=== PATIENT | female | born 1925 | race Caucasian/White ===

== ENCOUNTER 2016-08-05 18:52 | Emergency (ER) | payer MEDICARE, OTHER ==
--- NOTE | ~2016-08-05 | CT55 ---
[facility] A Service of [facility] RADIOLOGY TEXT RESULTS PATIENT: ROBERT MELÉNDEZ LOCATION: [facility] : [birth year] UNIT #: [id number] AGE: [address]: Duke Dunlap MD SEX: F ORDER DR: [id number] [facility] [address] [place], [place] [address] [id number] E MR#: [id number] #: [id number] NAME: ROBERT MELÉNDEZ. : 1925 SEX: F STUDY DATE/TIME: 08/05/2016 20:29 UNIT: [facility] ROOM: STUDY DESCRIPTION: CT Chest W Con Attending Physician: Duke Dunlap M.D. Ordering Physician: Duke Dunlap M.D. Primary Care Physician: Jyotsna Da Silva M.D. MEDICAL IMAGING REPORT This report is preliminary unless electronic signature is present EXAM CT chest with IV contrast HISTORY Right lung nodule on chest x-ray today. Lethargy. Unresponsive today. TECHNIQUE This CT examination was performed with one or more of the following radiation dose reduction techniques: automatic exposure control, adjustment of mA and/or kV according to patient size, and iterative reconstruction. FINDINGS CT chest with IV contrast demonstrates 2 patchy nodules in the posterior right upper lobe, extending to the posterior pleural surface. The more superior of these nodules measures 1.2 cm x 1.2 cm and the more inferior measures 1.2 cm x 1.8 cm. This corresponds with the right upper lung nodule on chest x-ray earlier today. Patchy adjacent infiltrates throughout both of these right upper lobe nodules and considerations include focal infectious or inflammatory etiologies, although malignancy including primary lung carcinoma must be considered. Either short-term followup CT or PET/CT should be considered depending on the patient's risk factors, and clinical symptoms. Mild bilateral emphysema. Mild subsegmental atelectasis in the peripheral inferior right lower lobe and in the inferior lingula. No adenopathy. Normal caliber thoracic aorta. IMPRESSION 1. There are 2 rounded nodules in the posterior right upper lobe, the more superior measuring 1.2 cm x 1.2 cm and the more inferior measuring 1.2 cm x 1.8 cm. The larger of these nodules likely corresponds to the right upper lung nodule on chest x-ray earlier today. There are mild patchy adjacent infiltrates about each of these right upper lobe nodules. Considerations include malignancy, both lung carcinoma or less STS. [facility] A Service of [facility] RADIOLOGY TEXT RESULTS PATIENT: ROBERT MELÉNDEZ [id number] [birth year] UNIT #: [id number] AGE: [address]: Duke Dunlap MD SEX: F ORDER DR: likely metastatic disease, versus infectious or inflammatory etiologies. Consider either short-term followup chest CT or PET/CT depending on the patient's history, symptoms and risk factors. 2. No additional infiltrates. No adenopathy. No effusions. Dictated by... Lenny Bauer M.D. THIS IS AN ELECTRONICALLY VERIFIED REPORT Lenny Bauer M.D. at 08/07/2016 12:28 PM KIN/rock TD: 08/07/2016 06:23 JOB #: [id number] MEDICAL IMAGING REPORT COPY
--- NOTE | ~2016-08-05 | CT71 ---
[facility] A Service of [facility] RADIOLOGY TEXT RESULTS PATIENT: ROBERT MELÉNDEZ LOCATION: [facility] : [birth year] UNIT #: [id number] AGE: [address]: Duke Dunlap MD SEX: F ORDER DR: [id number] [facility] [address] [place], [place] [address] [id number] E MR#: [id number] Acc #: [id number] NAME: ROBERT MELÉNDEZ. : 1925 SEX: F STUDY DATE/TIME: 08/05/2016 19:06 UNIT: [facility] ROOM: STUDY DESCRIPTION: CT Head Wo Contrast Attending Physician: Duke Dunlap M.D. Ordering Physician: Duke Dunlap M.D. Primary Care Physician: Jyotsna Da Silva M.D. MEDICAL IMAGING REPORT This report is preliminary unless electronic signature is present EXAM Head CT without, 08/05/2016 HISTORY Family found the patient less responsive this morning, lethargic, hypotension. TECHNIQUE This CT exam was performed with one or more of the following radiation dose reduction techniques: automatic exposure control, adjustment of mA and/or kV according to patient size, and iterative reconstruction. COMMENT Routine noncontrast head CT is reviewed. Comparison study is from 01/17/2016. No displaced calvarial fracture. The mastoid air cells are clear. There are vascular calcifications, quite prominent at the base of the brain. Only minor paranasal sinus mucosal thickening and no air-fluid level in the visualized paranasal sinuses. There is atrophy and severe white matter low attenuation as well as lacunar disease in the bilateral basal ganglia and thalami, technically age indeterminate but I do not see intracranial mass effect. Area of low attenuation in the right thalamus is more apparent than prior and could be more recent. If there is clinical concern for acute CVA and the patient is a candidate she is best assessed further with an MRI. There is no extraaxial fluid collection or acute intracranial hemorrhage. The patient has had cataract surgery bilaterally. IMPRESSION 1. No acute intracranial hemorrhage or extraaxial fluid collection or intracranial mass effect. [facility] A Service of [facility] RADIOLOGY TEXT RESULTS PATIENT: ROBERT MELÉNDEZ LOCATION: [facility] : [birth year] UNIT #: [id number] AGE: [address]: Duke Dunlap MD SEX: F ORDER DR: 2. 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 This was present on the study of 01/17/2016 but it may be worse. 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 If there is concern for an acute CVA and the patient is a candidate this is best pursued with an MRI. 3. There is extensive vascular calcification at the base of the brain. Dictated by... Gabriela Pete M.D. THIS IS AN ELECTRONICALLY VERIFIED REPORT Gabriela Pete M.D. at 08/07/2016 7:46 AM MOHIT/kennedy TD: 08/07/2016 00:16 JOB #: [id number] MEDICAL IMAGING REPORT COPY
--- NOTE | ~2016-08-05 | CR72 ---
[facility] A Service of [facility] RADIOLOGY TEXT RESULTS PATIENT: ROBERT MELÉNDEZ LOCATION: [facility] : [birth year] UNIT #: [id number] AGE: [address]: Duke Dunlap MD SEX: F ORDER DR: [id number] [facility] [address] [place], [place] [address] [id number] E MR#: [id number] Acc #: [id number] NAME: ROBERT MELÉNDEZ. : 1925 SEX: F STUDY DATE/TIME: 08/05/2016 18:31 UNIT: [facility] ROOM: STUDY DESCRIPTION: CR Chest Single View Portable Attending Physician: Duke Dunlap M.D. Ordering Physician: Duke Dunlap M.D. Primary Care Physician: Jyotsna Da Silva M.D. MEDICAL IMAGING REPORT This report is preliminary unless electronic signature is present EXAM Portable chest, 08/05/2016 HISTORY Shortness of air and weakness today. FINDINGS There is a lobulated nodule over the right upper lung, new compared to chest x-rays 10/06/2015 and 01/17/2016, measuring 1.69 cm x 2/4 cm. Considerations include neoplasm versus focal infectious or inflammatory process. Suggest further evaluation with chest CT. Cardiac size and pulmonary vascularity are within normal limits. Mild linear atelectasis or scarring in the lateral right base. Small calcified granulomas in the upper lungs bilaterally. Degenerative changes in both shoulders. IMPRESSION 1. Lobulated nodular density over the right upper lung measuring 1.6 cm x 2.4 cm is new compared to 01/17/2016. Considerations include neoplasm versus focal infectious or inflammatory process. Followup chest CT when clinically appropriate is recommended. 2. No focal infiltrates in the remainder of the chest. No effusions. Dictated by... Lenny Bauer M.D. THIS IS AN ELECTRONICALLY VERIFIED REPORT Lenny Bauer M.D. at 08/07/2016 12:26 PM DFMyles/kennedy TD: 08/07/2016 01:03 JOB #: [id number] [facility] A Service of [facility] RADIOLOGY TEXT RESULTS PATIENT: ROBERT MELÉNDEZ [id number] [birth year] UNIT #: [id number] AGE: [address]: Duke Dunlap MD SEX: F ORDER DR: MEDICAL IMAGING REPORT COPY
--- NOTE | ~2016-08-05 | EKG ---
PATIENT: ROBERT MELÉNDEZ UNIT #: [id number] Ventricular Rate: 63 BPM Atrial Rate: 63 BPM P-R Interval: 138 ms QRS Duration: 74 ms Q-T Interval: 478 ms QTC Calculation(Bezet): 489 ms P [place]: -15 degrees Calculated R [place]: 55 degrees Calculated T [place]: 65 degrees Diagnosis Line: Normal sinus rhythm Diagnosis Line: Normal ECG Diagnosis Line: When compared with ECG of 17-JAN-2016 13:19, Diagnosis Line: QT has lengthened Diagnosis Line: Confirmed by JENNIFER DOAN MD ([id number]) on 08/07/2016 Diagnosis Line: 7:30:16 AM INTERPRETING MD: OLIMPIA LITTLE
[~2016-08-05 18:52] MED LIST: ACETAMINOPHEN PO; ARICEPT5 MG PO; ASPIRINEC PO; BONIVA150 MG PO; CELEXA10 MG PO; EXELON1 PATCH .2 TD; FOLIC ACID PO; LEVAQUIN PO; LOPRESSOR PO; METHOTREXATE2.5 MG PO; METOPROLOL; METOPROLOL TAR25 MG PO; MULTIVITAMIN1 UDCAP PO; NAMENDA10 MG PO; OYSTER CALCIUM500 MG PO; VICODIN 5/1 TAB 5/50 PO; VITAMIN D400 UNI2 PO; [UNRECOGNIZED DRUG - OTHER] OU; [UNRECOGNIZED DRUG - OTHER] PO; [UNRECOGNIZED DRUG - OTHER] PO
[2016-08-05 19:04] LABS: BASOPHIL# 0.1 X10e3 (0-0.3); BASOPHIL% 0.8 % (0-2.5); EOSINOPHIL# 0.1 X10e3 (0-0.7); EOSINOPHIL% 0.4 % (0.0-7.0); HEMOGLOBIN 9.6 gm/dL (12.0-16.0); LYMPHOCYTE# 1.1 X10e3 (1.0-3.5); LYMPHOCYTE% 6.7 % (17.0-45.0); MEAN CELL VOLUME 86.3 FL (83-96); MEAN CORPUSCULAR HEMOGLOBIN 26.8 PG (28-34); MEAN CORPUSCULAR HGB CONC 31.1 g/dL (30-36); MEAN PLATELET VOLUME 8.8 FL (6.5-11.5); MONOCYTE# 0.8 X10e3 (0-1.0); MONOCYTE% 4.8 % (3.0-12.0); NEUTROPHIL% 87.3 % (40-75); PLATELET COUNT 453 X10e3 (140-420); RED BLOOD COUNT 3.59 X10e (3.90-5.30); RED CELL DISTRIBUTION WIDTH 16.2 % (11.0-15.5)
[2016-08-05 19:05] LABS: DIFF IND YES
[2016-08-05 19:32] LABS: URINE SOURCE CLEAN CATCH
[2016-08-05 19:34] LABS: ACETAMINOPHEN <10 ug/mL; ALBUMIN SERUM 2.4 g/dL (3.5-5.0); ALKALINE PHOSPHATASE 91 U/L (32-92); ALT (SGPT) 18 U/L (10-40); AST (SGOT) 21 U/L (10-42); BILIRUBIN, DIRECT 0.1 mg/dL (0.0-0.2); BILIRUBIN,INDIRECT 0.5 mg/dL (0.0-0.9); BILIRUBIN,TOTAL 0.6 mg/dL (0.2-2.0); BLOOD UREA NITROGEN 21 mg/dL (9-23); BUN/CREATININE RATIO 23.33; CALCIUM SERUM 9.2 mg/dL (8.4-10.2); CARBON DIOXIDE 27 mmol/L (22-31); CHLORIDE 105 mmol/L (100-111); CREATININE SERUM 0.9 mg/dL (0.6-1.4); GLOM FILT RATE Estimated ABOVE60 mL/min (>60); GLUCOSE FASTING 117 mg/dL (70-110); PLATELET ESTIMATE NORMAL (NORMAL); POTASSIUM 3.2 mmol/L (3.5-5.1); PROTEIN TOTAL SERUM 7.1 g/dL (6.0-8.3); SALICYLATE <4.0 mg/dL; SODIUM 141 mmol/L (135-145)
[2016-08-05 19:35] LABS: HYPOCHROMIA SL
[2016-08-05 19:39] LABS: URINE APPEARANCE CLEAR; URINE BILIRUBIN NEG (NEG); URINE BLOOD NEG (NEG); URINE COLOR YELLOW; URINE GLUCOSE NEG (NEG); URINE KETONE NEG (NEG); URINE LEUKOCYTE ESTERASE NEG (NEG); URINE NITRATE NEG (NEG); URINE PROTEIN TRACE (NEG); URINE SPECIFIC GRAVITY 1.024 (1.003-1.035)
[2016-08-05 19:49] LABS: AMPHETAMINE NEG (NEG); BARBITURATES NEG (NEG); BENZODIAZEPINES NEG (NEG); COCAINE NEG (NEG); MARIJUANA NEG (NEG); OPIATES NEG (NEG); TRICYCLIC ANTIDEPRESSANTS NEG (NEG); U METHADONE NEG (NEG)
[2016-08-05 19:50] LABS: CULTURE INDICATED? NO
== END 2016-08-06 00:09 | disposition home or self-care (01) ==
LOC: CED 18:52
PROVIDERS: Emergency Medicine
DX: R40.1 Stupor (principal); F03.90 Unspecified dementia, unspecified severity, without behavioral disturbance, psychotic disturbance, mood disturbance, and anxiety; R91.8 Other nonspecific abnormal finding of lung field; I10 Essential (primary) hypertension; Z90.49 Acquired absence of other specified parts of digestive tract
CPT/HCPCS: 36415; 51701; 70450; 71010; 71260; 80048; 80076; 80307; 81003; 82140; 82947; 83605; 85025; 87040; 93005; 96361; 96365; 99284; G0480; J0696; Q9967